=== PATIENT | male | born 1980 | race Asian ===

== ENCOUNTER 2021-08-04 20:36 | Emergency (ER) | payer BC ==
[~2021-08-04] VITALS: Ht 175.3 cm; Wt 82.8 kg
[2021-08-04 20:52] VITALS: BP 112/75
--- NOTE | 2021-08-04 21:06 | NUR ---
pt left with out being seen
== END 2021-08-04 21:38 | disposition left against medical advice (07) ==
LOC: ER 20:39
DX: R04.0 Epistaxis (principal); Z53.21 Procedure and treatment not carried out due to patient leaving prior to being seen by health care provider